=== PATIENT | female | born 1950 | race African-American/Black ===

== ENCOUNTER 2018-09-22 08:15 | Emergency (ER) | payer MEDICARE, MEDICAID ==
[~2018-09-22] VITALS: Ht 152.4 cm; Wt 82.0 kg
[~2018-09-22 08:15] MED LIST: ASPI-1079 PO; BENA40TA9 PO; BUDE6.9H INH; DOCU100T PO; GABA-533 PO; HYDR25TA PO; IBUP-2030 PO; LINA5TAB PO; PRED5DRO7 EACHEYE; PREG200C PO; levemir SUBCUT
[2018-09-22] MEDS ORDERED: KETOROLAC 60MG/2ML VIAL IM ONE (09:45)
[2018-09-22 10:10] LABS: BASOPHILS % 0.5 % (0.0-2.0); EOSINOPHILS % 4.5 % (0.0-5.0); HEMATOCRIT. 37.2 % (36.0-48.0); HEMOGLOBIN. 12.1 g/dL (12.0-16.0); LYMPHOCYTES % 36.3 % (20.0-50.0); MEAN CORPUSCULAR HEMOGLOBIN 28.6 pg (28.0-32.0); MEAN CORPUSCULAR VOLUME 87.6 fL (81.0-99.0); MEAN PLATELET VOLUME 7.4 fl (7.4-10.4); MONOCYTES % 9.4 % (2.0-8.0); NEUTROPHILS % 49.3 % (40.0-76.0); PLATELET 333 x1000/uL (130-400); RED BLOOD CELL COUNT 4.24 mill/uL (4.2-5.4); RED CELL DISTRIBUTION WIDTH 12.8 % (11.6-14.6)
[2018-09-22 10:18] LABS: CHLORIDE 109 mEq/L (98-107)
[2018-09-22 10:29] LABS: CREATINE KINASE 47 IU/L (26-192)
[2018-09-22] MEDS: CYCLOBENZAPRINE 10MG TABLET PO ONE ×2 (11:23→11:24)
[2018-09-22 11:32] VITALS: BP 145/82
== END 2018-09-22 11:33 | disposition home or self-care (01) ==
LOC: ER 08:15
DX: M54.5 Low back pain (principal); M79.604 Pain in right leg; R25.2 Cramp and spasm; M79.605 Pain in left leg; I10 Essential (primary) hypertension; E78.00 Pure hypercholesterolemia, unspecified; E11.9 Type 2 diabetes mellitus without complications; Z98.890 Other specified postprocedural states; Z88.2 Allergy status to sulfonamides; Z79.899 Other long term (current) drug therapy
CPT/HCPCS: 36415; 80048; 82550; 85025; 96372; 99283; J1885

== ENCOUNTER 2022-03-12 08:30 | Emergency (ER) | payer MEDICARE, MEDICAID ==
[~2022-03-12] VITALS: Ht 165.1 cm; Wt 70.0 kg
[2022-03-12 08:52] VITALS: BP 136/73
== END 2022-03-12 09:45 | disposition home or self-care (01) ==
LOC: ER 08:30
DX: R22.9 Localized swelling, mass and lump, unspecified (principal); E11.9 Type 2 diabetes mellitus without complications; I10 Essential (primary) hypertension; E78.00 Pure hypercholesterolemia, unspecified; Z85.3 Personal history of malignant neoplasm of breast; Z88.2 Allergy status to sulfonamides; Z79.82 Long term (current) use of aspirin
CPT/HCPCS: 99281

== ENCOUNTER 2022-03-17 19:39 | Emergency (ER) | payer MEDICARE, MEDICAID ==
[~2022-03-17] VITALS: Ht 152.4 cm; Wt 76.7 kg
[~2022-03-17 19:39] MED LIST changes: -BENA40TA9 PO; +BENA40TA91 PO
[2022-03-17 20:14] VITALS: BP 151/86
== END 2022-03-18 02:30 | disposition home or self-care (01) ==
LOC: ER 19:39
DX: S92.512A Displaced fracture of proximal phalanx of left lesser toe(s), initial encounter for closed fracture (principal); E78.00 Pure hypercholesterolemia, unspecified; I10 Essential (primary) hypertension; E11.9 Type 2 diabetes mellitus without complications; X50.0XXA Overexertion from strenuous movement or load, initial encounter; Y93.89 Activity, other specified; Y92.9 Unspecified place or not applicable; Z88.2 Allergy status to sulfonamides; Z79.82 Long term (current) use of aspirin
CPT/HCPCS: 73660; 99283

== ENCOUNTER 2022-04-23 17:16 | Emergency (ER) | payer MEDICARE, MEDICAID ==
[~2022-04-23] VITALS: Ht 152.4 cm; Wt 73.0 kg
[2022-04-23 22:21] VITALS: BP 120/75
[2022-04-23] MEDS ORDERED: IBUP-2029 MT (23:03)
== END 2022-04-23 22:21 | disposition home or self-care (01) ==
LOC: ER 17:16
DX: S92.352A Displaced fracture of fifth metatarsal bone, left foot, initial encounter for closed fracture (principal); W01.0XXA Fall on same level from slipping, tripping and stumbling without subsequent striking against object, initial encounter; Y93.89 Activity, other specified; Y92.89 Other specified places as the place of occurrence of the external cause; E11.9 Type 2 diabetes mellitus without complications; E78.00 Pure hypercholesterolemia, unspecified; I10 Essential (primary) hypertension; Z88.2 Allergy status to sulfonamides; Z79.82 Long term (current) use of aspirin; Z98.890 Other specified postprocedural states
CPT/HCPCS: 73600; 73620; 99284